=== PATIENT | male | born 1990 | race Caucasian/White ===

== ENCOUNTER 2017-05-22 22:56 | Emergency (ER) | payer BC, OTHER ==
[2017-05-22] MEDS ORDERED: Sodium Chloride 0.9% 1,000 ML IV ONE (23:37)
[2017-05-22] MEDS ORDERED: Ondansetron 4 MG/2 ML SDV IVPUSH ONE (23:37)
[2017-05-22] MEDS ORDERED: Dicyclomine 20 MG/2 ML SDV IM ONE (23:38)
[2017-05-23] MEDS ORDERED: Lidocaine 1% 2 ML ONE (00:42)
[2017-05-23] MEDS ORDERED: Magnesium Sulfate/Water 2 GM in Premix Bag 1 BAG IV ONE (01:13)
--- NOTE | 2017-05-23 01:15 | EDM.PDOC ---
ED HPI GENERAL MEDICAL PROBLEM - General Chief Complaint: Gastrointestinal Problem Stated Complaint: ABDOMINAL PAIN/VOMITING Time Seen by Provider: 05/22/17 23:17 Source of Information: Reports: Patient, RN Notes Reviewed, Significant Other History Limitations: Reports: No Limitations - History of Present Illness INITIAL COMMENTS - FREE TEXT/NARRATIVE: The patient states that he had nausea, vomiting, and nonbloody diarrhea from 08: 00 to 20:00 today. He has been experiencing abdominal cramps, which became significantly worse after drinking some Gatorade tonight. He reports a subjective fever, tingling all over his body, inability to see straight, and feeling of walking on rubber legs. The patient has tried Kaopectate, Pepto-Bismol, Advil, and NyQuil, with no relief of his symptoms. The patient states that the fish that he was having for dinner smelled funny, therefore he ate only a small amount of it, however, his significant other had the fish, and she is not ill. No recent antibiotics. The patient was in [place], [place] last month, otherwise no recent travel. No prior similar symptoms. The patient's PCP is Dr. Job Montanez, from [place]. Bilateral Middle Abdomen Pain Score (Numeric/FACES): 8 - Related Data Allergies Allergy/AdvReac Type Severity Reaction Status Date / Time No Known Allergies Allergy Verified 05/22/17 23:04 Home Meds: Home Meds Dicyclomine [Bentyl] 20 mg PO Q6H PRN #10 tablet 05/23/17 [Rx] Ondansetron [Zofran ODT] 4 mg PO Q8H PRN #10 tab.dis 05/23/17 [Rx] Past Medical History - Past Surgical History HEENT Surgical History: Reports: Oral Surgery ([place] teeth extraction) Musculoskeletal Surgical History: Reports: Arthroscopic Knee (left) Social & Family History - Tobacco Use Smoking Status *Q: Never Smoker - Alcohol Use Alcohol Use History: Yes Alcohol Use Frequency: Socially - Recreational Drug Use Recreational Drug Use: No - Living Situation & Occupation Living situation: Reports: Single, with Significant Other Occupation: Employed (Chemical Engineering Technician) ED ROS GENERAL - Review of Systems Review Of Systems: See Below Constitutional: Reports: No Symptoms HEENT: Reports: No Symptoms Respiratory: Reports: No Symptoms Cardiovascular: Reports: No Symptoms Endocrine: Reports: No Symptoms GI/Abdominal: Reports: No Symptoms : Reports: No Symptoms Musculoskeletal: Reports: No Symptoms Skin: Reports: No Symptoms Neurological: Reports: No Symptoms Psychiatric: Reports: No Symptoms Hematologic/Lymphatic: Reports: No Symptoms Immunologic: Reports: No Symptoms ED EXAM, GI/ABD - Physical Exam Exam: See Below Exam Limited By: No Limitations General Appearance: Alert, WD/WN, No Apparent Distress Eyes: Bilateral: Normal Appearance, EOMI Ears: Normal External Exam, Hearing Grossly Normal Nose: Normal Inspection, No Blood Throat/Mouth: Normal Inspection, Normal Lips, Normal Voice, No Airway Compromise Head: Atraumatic, Normocephalic Neck: Normal Inspection, Full Range of Motion Respiratory/Chest: No Respiratory Distress, Lungs Clear, Normal Breath Sounds, No Accessory Muscle Use Cardiovascular: Normal Peripheral Pulses, Regular Rate, Rhythm, No Gallop, No JVD, No Murmur, No Rub GI/Abdominal Exam: Normal Bowel Sounds, Soft, No Organomegaly, No Distention, No Abnormal Bruit, No Mass, Pelvis Stable, Tender (Mild, generalized tenderness) (Male) Exam: Deferred Rectal (Males) Exam: Deferred Back Exam: Normal Inspection, Full Range of Motion, NT Extremities: Normal Inspection, Normal Range of Motion, No Pedal Edema, Normal Capillary Refill Neurological: Alert, Oriented, Normal Cognition, No Motor/Sensory Deficits Psychiatric: Normal Affect Skin Exam: Warm, Dry, Intact, Normal Color, No Rash EKG INTERPRETATION EKG Date: 05/22/17 Time: 23:56 Rhythm: NSR Rate (Beats/Min): 83 [place]: Normal P-Wave: Present QRS: Normal ST-T: Normal QT: Normal Comparison: NA - No Prior EKG Course - Vital Signs Last Recorded V/S: Last Vital Signs Temp 36.3 C 05/22/17 23:04 Pulse 95 05/22/17 23:04 Resp 18 05/22/17 23:04 BP 135/78 05/22/17 23:04 Pulse Ox 99 05/22/17 23:04 - Orders/Labs/Meds Orders: Active Orders 24 hr Category Date Time Status EKG Documentation Completion [RC] STAT Care 05/22/17 23:35 Active Orthostatic Vital Signs [RC] STAT Care 05/22/17 23:35 Active C DIFFICILE BY PCR W/NAP1 [MOLEC] Stat Lab 05/22/17 23:35 Received CULTURE STOOL + SHIGATOX [RM] Stat Lab 05/23/17 01:25 Received NOROVIRUS GROUP 1 & 2 RT-PCR Stat Lab 05/22/17 23:37 Received ROTAVIRUS DIRECT ANTIGEN STOOL [OP] Stat Lab 05/23/17 01:25 Received WBC, STOOL [OP] Stat Lab 05/23/17 01:25 Received Labs: Laboratory Tests 05/22/17 05/22/17 05/22/17 Range/Units 00:33 23:15 23:15 WBC 12.43 H (4.23-9.07) K/mm3 RBC 5.80 (4.63-6.08) M/mm3 Hgb 16.9 (13.7-17.5) gm/L Hct 48.5 (40.1-51.0) % MCV 83.6 (79.0-92.2) fl MCH 29.1 (25.7-32.2) pg MCHC 34.8 (32.2-35.5) g/dl RDW Std Deviation 41.5 (35.1-43.9) fL Plt Count 299 (163-337) K/mm3 MPV 10.6 (9.4-12.3) fl Neutrophils % (Manual) 95 H (40-60) % Band Neutrophils % 3 (0-10) % Lymphocytes % (Manual) 2 L (20-40) % Atypical Lymphs % 0 % Monocytes % (Manual) 0 L (2-10) % Eosinophils % (Manual) 0 L (0.8-7.0) % Basophils % (Manual) 0 L (0.2-1.2) Metamyelocytes % 0 Myelocytes % 0 Promyelocytes % 0 Blast Cells % 0 Plasma Cell % (Manual) 0 Nucleated RBCs 0.0 % WBC Morphology Comment Platelet Estimate Adequate RBC Morph Comment Normal Puncture Site Rt radial ABG pH 7.33 L (7.35-7.45) ABG pCO2 35.0 (35.0-45.0) mmHg ABG pO2 85.0 (80.0-100.0) mmHg ABG HCO3 18.1 L (22.0-26.0) meq/L ABG O2 Saturation 96.7 (96.0-97.0) % ABG Base Excess -6.5 L (-2-2.0) A-a Gradient 6 mmHg O2 Delivery Device Room air Sodium 136 (136-145) mEq/L Potassium 4.8 (3.5-5.1) mEq/L Chloride 99 (98-107) mEq/L Carbon Dioxide 16 L (21-32) mEq/L Anion Gap 25.8 H (5-15) BUN 25 H (7-18) mg/dL Creatinine 1.8 H (0.7-1.3) mg/dL Est Cr Clr Drug Dosing 73.02 mL/min Estimated GFR (MDRD) 45 (>60) mL/min BUN/Creatinine Ratio 13.9 L (14-18) Glucose 175 H (74-106) mg/dL Lactic Acid (0.4-2.0) mmol/L Calcium 10.1 (8.5-10.1) mg/dL Magnesium 1.6 L (1.8-2.4) mg/dl Total Bilirubin 0.8 (0.2-1.0) mg/dL AST 39 H (15-37) U/L ALT 50 (16-63) U/L Alkaline Phosphatase 73 (46-116) U/L Total Protein 9.2 H (6.4-8.2) g/dl Albumin 4.7 (3.4-5.0) g/dl Globulin 4.5 gm/dL Albumin/Globulin Ratio 1.0 (1-2) Lipase 91 (73-393) U/L Urine Color (Yellow) Urine Appearance (Clear) Urine pH (5.0-8.0) Ur Specific [place] (1.005-1.030) Urine Protein (Negative) Urine Glucose (UA) (Negative) Urine Ketones (Negative) Urine Occult Blood (Negative) Urine Nitrite (Negative) Urine Bilirubin (Negative) Urine Urobilinogen (0.2-1.0) Ur Leukocyte Esterase (Negative) Urine RBC (0-5) /hpf Urine WBC (0-5) /hpf Ur Epithelial Cells Ur Squamous Epith Cells (0-5) /hpf Urine Bacteria (FEW) /hpf Urine Mucus (FEW) /hpf 05/22/17 05/23/17 Range/Units 23:53 01:28 WBC (4.23-9.07) K/mm3 RBC (4.63-6.08) M/mm3 Hgb (13.7-17.5) gm/L Hct (40.1-51.0) % MCV (79.0-92.2) fl MCH (25.7-32.2) pg MCHC (32.2-35.5) g/dl RDW Std Deviation (35.1-43.9) fL Plt Count (163-337) K/mm3 MPV (9.4-12.3) fl Neutrophils % (Manual) (40-60) % Band Neutrophils % (0-10) % Lymphocytes % (Manual) (20-40) % Atypical Lymphs % % Monocytes % (Manual) (2-10) % Eosinophils % (Manual) (0.8-7.0) % Basophils % (Manual) (0.2-1.2) Metamyelocytes % Myelocytes % Promyelocytes % Blast Cells % Plasma Cell % (Manual) Nucleated RBCs % WBC Morphology Comment Platelet Estimate RBC Morph Comment Puncture Site ABG pH (7.35-7.45) ABG pCO2 (35.0-45.0) mmHg ABG pO2 (80.0-100.0) mmHg ABG HCO3 (22.0-26.0) meq/L ABG O2 Saturation (96.0-97.0) % ABG Base Excess (-2-2.0) A-a Gradient mmHg O2 Delivery Device Sodium (136-145) mEq/L Potassium (3.5-5.1) mEq/L Chloride (98-107) mEq/L Carbon Dioxide (21-32) mEq/L Anion Gap (5-15) BUN (7-18) mg/dL Creatinine (0.7-1.3) mg/dL Est Cr Clr Drug Dosing mL/min Estimated GFR (MDRD) (>60) mL/min BUN/Creatinine Ratio (14-18) Glucose (74-106) mg/dL Lactic Acid 1.6 (0.4-2.0) mmol/L Calcium (8.5-10.1) mg/dL Magnesium (1.8-2.4) mg/dl Total Bilirubin (0.2-1.0) mg/dL AST (15-37) U/L ALT (16-63) U/L Alkaline Phosphatase (46-116) U/L Total Protein (6.4-8.2) g/dl Albumin (3.4-5.0) g/dl Globulin gm/dL Albumin/Globulin Ratio (1-2) Lipase (73-393) U/L Urine Color Stacey H (Yellow) Urine Appearance Clear (Clear) Urine pH 6.0 (5.0-8.0) Ur Specific [place] 1.025 (1.005-1.030) Urine Protein 1+ H (Negative) Urine Glucose (UA) Negative (Negative) Urine Ketones 2+ H (Negative) Urine Occult Blood Negative (Negative) Urine Nitrite Negative (Negative) Urine Bilirubin 1+ H (Negative) Urine Urobilinogen 0.2 (0.2-1.0) Ur Leukocyte Esterase Negative (Negative) Urine RBC Not seen (0-5) /hpf Urine WBC 0-5 (0-5) /hpf Ur Epithelial Cells Not Reportable Ur Squamous Epith Cells 0-5 (0-5) /hpf Urine Bacteria Not seen (FEW) /hpf Urine Mucus Few (FEW) /hpf Meds: Medications Discontinued Medications Generic Name Dose Route Start Last Admin Trade Name Freq PRN Reason Stop Dose Admin Dicyclomine HCl 20 mg 05/22/17 23:38 05/23/17 00:02 Bentyl IM 05/22/17 23:39 20 mg ONETIME ONE Administration Sodium Chloride 1,000 mls @ 999 mls/hr 05/22/17 23:37 05/22/17 23:49 Normal Saline IV 05/23/17 00:37 999 mls/hr ONETIME ONE Administration Lidocaine HCl Confirm 05/23/17 00:42 Xylocaine-Mpf 1% Administered 05/23/17 00:43 Dose 2 mls @ as directed .ROUTE .STK-MED ONE Magnesium Sulfate 2 gm/ Premix 50 mls @ 50 mls/hr 05/23/17 01:13 05/23/17 01: 25 IV 05/23/17 02:12 50 mls/hr ONETIME ONE Administration Sodium Chloride 1,000 mls @ 999 mls/hr 05/23/17 02:02 05/23/17 02:12 Normal Saline IV 05/23/17 03:02 999 mls/hr ONETIME ONE Administration Ondansetron HCl 4 mg 05/22/17 23:37 05/22/17 23:49 Zofran IVPUSH 05/22/17 23:38 4 mg ONETIME ONE Administration - Re-Assessments/Exams Free Text/Narrative Re-Assessment/Exam: 05/23/17 01:13 The patient's WBC count returned modestly elevated at 12.43 with 3% bandemia. The remainder of the CBC is normal. The patient's HCO3 is depressed at 16 and an anion gap elevated at 25.6. This indicates an anion gap metabolic acidosis. His BUN/Cr are elevated at 25/1.8, possibly do to intravascular depletion, but not necessarily. There are no prior labs for comparison, therefore it is unclear if this is an acute versus chronic renal insufficiency. Acute renal insufficiency could be the cause of his anion gap metabolic acidosis. The patient's blood glucose is elevated at 175, indicating at least prediabetes. His magnesium level is mildly depressed at 1.6. The patient was started on 1 L NS, 20 mg Bentyl IM, and 4 mg Zofran IVP with my initial orders. I have ordered a 2 g magnesium rider. We are still waiting for the orthostatic blood pressure results, and the patient has not yet provided a urine or stool sample. 05/23/17 03:14 Notified by the lab that the C. difficile is negative. The remaining stool studies will not be available until the morning. 05/23/17 03:19 Test results discussed with the patient. He states that he is feeling much better. I have ordered loperamide for his recent diarrhea. I offered to place him into observation for continued IV fluid, as treatment for his anion gap metabolic acidosis, however, the patient declined. He would prefer to go home. I will have him take [id number] loperamide as needed. I will prescribe Zofran and Bentyl. I will have the patient follow up with his PCP to check on the stool test results. Departure - Departure Time of Disposition: 03:21 Disposition: Home, Self-Care 01 Condition: Fair Clinical Impression: High anion gap metabolic acidosis, Acute renal failure, Prediabetes, Hypomagnesemia, Gastroenteritis - Discharge Information Referrals: Job Montanez MD [Physician] - Forms: ED Department Discharge Additional Instructions: You were seen in the emergency room for nausea, vomiting, diarrhea, stomach cramps, tingling of your body, difficulty seeing straight, and feeling of walking on rubber legs. Workup in the ER included blood work, an arterial blood gas, a urinalysis, an ECG, and stool studies. Your workup revealed a significant anion gap metabolic acidosis, acute kidney injury, high blood sugar, and low magnesium. These abnormalities are LIKELY caused by diarrhea, but we have no prior labs to compare. You received IV fluid, IV magnesium, IV Zofran, IM Bentyl, and oral Imodium in the ER. Admission to the hospital was recommended, but declined. Dissolve one tablet of the anti-nausea medicine and Zofran on your tongue up to every 8 hours, as needed for nausea/vomiting. Take one tablet of the anti-spasm medicine Bentyl up to every 6 hours, as needed for abdominal cramps. Take one tablet of [id number] Imodium (loperamide) after each loose bowel movement, to a maximum of 8 tablets within 24 hours. Stay well hydrated. Continue to drink fluids until your urine is light colored, like lemonade, not dark, like apple juice. Follow-up with your PCP, Dr. Montanez, later today, to have him check on your stool test results. If any other problems, please do not hesitate to return to the ER. - My Orders Last 24 Hours: My Active Orders 05/22/17 23:35 EKG Documentation Completion [RC] STAT Orthostatic Vital Signs [RC] STAT C DIFFICILE BY PCR W/NAP1 [MOLEC] Stat 05/22/17 23:37 NOROVIRUS GROUP 1 & 2 RT-PCR Stat 05/23/17 01:25 CULTURE STOOL + SHIGATOX [RM] Stat ROTAVIRUS DIRECT ANTIGEN STOOL [OP] Stat WBC, STOOL [OP] Stat - Assessment/Plan Last 24 Hours: My Active Orders 05/22/17 23:35 EKG Documentation Completion [RC] STAT Orthostatic Vital Signs [RC] STAT C DIFFICILE BY PCR W/NAP1 [MOLEC] Stat 05/22/17 23:37 NOROVIRUS GROUP 1 & 2 RT-PCR Stat 05/23/17 01:25 CULTURE STOOL + SHIGATOX [RM] Stat ROTAVIRUS DIRECT ANTIGEN STOOL [OP] Stat WBC, STOOL [OP] Stat
[2017-05-23] MEDS ORDERED: Sodium Chloride 0.9% 1,000 ML IV ONE (02:02)
[2017-05-23] MEDS ORDERED: Loperamide 2 MG Cap PO STA (03:19)
== END 2017-05-23 03:44 | disposition home or self-care (01) ==
LOC: JD.ED 22:56
DX: K52.9 Noninfective gastroenteritis and colitis, unspecified (principal); N17.9 Acute kidney failure, unspecified; E87.2 Acidosis; R73.03 Prediabetes; E83.42 Hypomagnesemia
CPT/HCPCS: 36415; 36600; 80053; 81001; 82803; 83605; 83690; 83735; 85025; 87046; 87425; 87427; 87493; 87798; 89055; 93005; 96361; 96365; 96372; 96375; 99284; A9270; J0500; J2405; J7040; 93010; J3475